=== PATIENT | male | born 1990 | race Caucasian/White ===

== ENCOUNTER → 2017-08-19 18:53 | Emergency (ER) | payer OTHER ==
[2017-08-19 19:01] VITALS: BP 125/70
--- NOTE | 2017-08-19 19:46 | ED ---
Skin Complaint - HPI Summary HPI Summary: 27M presents with potential infection on right knee. He has a small laceration to her knee that he sustained a week ago. He has not really been cleaning the area. no spreading redness. no fever. has full ROM without pain. no edema to knee. minimal redness around healing incision. - History of Current Complaint Chief Complaint: EDGeneral Time Seen by Provider: 08/19/17 19:38 Stated Complaint: RT KNEE INFLAMMATION Pain Intensity: 6 - Allergy/Home Medications Allergies/Adverse Reactions: Allergies Allergy/AdvReac Type Severity Reaction Status Date / Time No Known Allergies Allergy Verified 08/19/17 20:05 PMH/Surg Hx/FS Hx/Imm Hx Endocrine/Hematology History: Denies: Hx Anticoagulant Therapy Cardiovascular History: Denies: Hx Hypertension Infectious Disease History: Unable to Obtain/Confirm Infectious Disease History: Denies: Traveled Outside the [place] in Last 30 Days - Family History Known Family History: Negative: Diabetes - Social History Alcohol Use: Rare Substance Use Type: Reports: None Smoking Status (MU): Never Smoked Tobacco Review of Systems Negative: Fever Negative: Chest Pain Negative: Shortness Of Breath Positive: Other - potential infection around old laceration All Other Systems Reviewed And Are Negative: Yes Physical Exam Triage Information Reviewed: Yes Vital Signs On Initial Exam: Initial Vitals Temp Pulse Resp BP Pulse Ox 98.9 F 79 18 125/70 100 08/19/17 18:56 08/19/17 18:56 08/19/17 18:56 08/19/17 18:56 08/19/17 18:56 Vital Signs Reviewed: Yes Appearance: Positive: Well-Appearing Skin: Positive: Warm, Dry, Other - 1cm scabbed laceration to right knee with minimial irritation around no streaking Head/Face: Positive: Normal Head/Face Inspection Eyes: Positive: Normal, EOMI, DANIAL, Conjunctiva Clear ENT: Positive: Normal ENT inspection, Pharynx normal, TMs normal Respiratory/Lung Sounds: Positive: Clear to Auscultation, Breath Sounds Present Cardiovascular: Positive: Normal, RRR Musculoskeletal: Positive: Strength/ROM Intact - right knee, Other - good pulses - [place] Coma Scale Coma Scale Total: 15 Diagnostics - Vital Signs Vital Signs Temp Pulse Resp BP Pulse Ox 08/19/17 18:56 98.9 F 79 18 125/70 100 - Laboratory Lab Statement: Any lab studies that have been ordered have been reviewed, and results considered in the medical decision making process. Course/Dx - Course Course Of Treatment: 27M presents with potential infection on right knee. He has a small laceration to her knee that he sustained a week ago. He has not really been cleaning the area. no spreading redness. no fever. has full ROM without pain. no edema to knee. minimal redness around healing incision. 1cm scabbed healing laceration with minimial irritation around it. no evidence of cellulitis or abscess. will treat with topical antibiotic and placed on oral as precaution. patient understand and agrees with plan. - Differential Diagnoses - Skin Complaint Differential Diagnoses: Abscess, Cellulitis, Contact Dermatitis, Other - healing laceration - Diagnoses Provider Diagnoses: Healing laceration Discharge - Discharge Plan Condition: Good Disposition: HOME Prescriptions: Cephalexin CAP* [Keflex CAP*] 500 mg PO BID #14 cap Mupirocin 2% CREAM* [Bactroban 2% CREAM*] 1 applic TOPICAL BID #1 tube Patient Education Materials: Acute Wound Care (ED) Referrals: Non Staff,Doctor [Primary Care Provider] - Additional Instructions: Wash area with soap and water twice a day, apply topical antibiotic The area does not appear infected at the moment, to prevent infection take antibiotic twice a day for 7 days Return if redness spreads after two days on antibiotic, develop fever, or any new or worsening symptoms
== END | disposition home or self-care (01) ==
LOC: ED 18:53
DX: S81.011D Laceration without foreign body, right knee, subsequent encounter (principal); X58.XXXD Exposure to other specified factors, subsequent encounter; Y92.9 Unspecified place or not applicable
CPT/HCPCS: 99282